=== PATIENT | male | born 1965 | race Caucasian/White ===

== ENCOUNTER 2021-01-10 15:49 | Inpatient (IN) | payer SELFPAY ==
[2021-01-10] VITALS (12 sets, daily range): BP systolic 117–139; BP diastolic 77–90; PULSE 62–101; RESP 16–24; TEMP 37.1–37.4; O2SAT 94–99; BMI 27.7
--- NOTE | 2021-01-10 17:00 | W.ED.ABDPA2 ---
Documented by User: Butch Garces MD 01/10/21 17:02 HPI - Abdominal Pain General: Chief Complaint: Abdominal Pain Stated Complaint: Pain in ABD Time Seen by Provider: 01/10/21 16:54 History of Present Illness: HPI narrative: This patient is a 55-year-old male who presents to the emergency department complaint of severe abdominal pain in the epigastrium the right upper quadrant and more diffusely. Patient has been nauseated and vomited once. Patient states he started having severe abdominal pain after mowing the yard on Saturday 2 days ago. Patient states been unable to eat ever since. Patient states that he is only had sips of water since then. Will do medical evaluation treat as needed. Patient is advised to be n.p.o. until studies and evaluation is completed. MD elicited complaint: abdominal pain Onset (ago): day(s) Pain Consistency: constant Location: Diffuse Severity: moderate Quality: aching Radiation: none Associated Symptoms: Reports nausea and vomiting; Denies chills, dysuria and fever(s) Review of Systems General: Reports: 10 or more systems reviewed and unremarkable except in HPI and below Const: Denies: fever(s), chills, body aches or fatigue Eyes: Denies: change in vision or blurry vision ENMT: Denies: throat pain, hoarseness or mouth pain Card: Denies: chest pain, palpitations, irregular heart rhythm, edema, swelling of feet/ankles or lightheadedness Resp: Denies: dyspnea, productive cough, non-productive cough, wheezing or pain on inspiration GI: Reports: abdominal pain, nausea and vomiting : Denies: flank pain, dysuria, urinary frequency, urinary urgency or urinary hesitancy Musc: Denies: neck pain, back pain, extremity pain, extremity swelling, joint pain, joint swelling, joint redness, joint warmth or limited range of motion Skin/Breast: Denies: rash, pruritus, erythema or skin tenderness Neuro: Denies: headache(s), numbness in extremities or weakness in extremities Psych: Denies: anxiety or depression Physical Exam Const: COMMON NORMALS: no acute distress, average body habitus, patient oriented x3, no limitations, healthy appearing, alert and well nourished HENMT: COMMON NORMALS: normocephalic, atraumatic, hearing grossly normal bilaterally, external ears normal, EAC's normal, TM's normal bilaterally, Normal external nose present, Normal nasal mucous membranes and turbinates present, moist oral mucous membranes, oropharynx normal, dentition normal and gingiva normal HEAD & SCALP: normocephalic and atraumatic NOSE: Normal external nose present and Normal nasal mucous membranes and turbinates present EXTERNAL EAR: Yes external ears normal EXTERNAL AUDITORY CANAL: EAC's normal TYMPANIC MEMBRANE: TM's normal bilaterally Neck/C-Spine: COMMON NORMALS: full ROM, no lymphadenopathy, supple, no meningeal signs, no JVD, Thyroid normal and No carotid bruits THYROID: Thyroid normal Chest: COMMONS NORMALS: normal inspection of the chest, normal palpation of entire chest wall, normal inspection of the breasts and normal palpation of the breasts Breast/axilla inspection: Yes normal inspection of the breasts BREAST/AXILLA PALPATION: Yes normal palpation of the breasts Resp: COMMON NORMALS: normal respiratory effort, No retractions, No use of accessory muscles, clear to auscultation bilaterally and percussion normal AUSCULTATION: clear to auscultation bilaterally PERCUSSION: percussion normal Cardio: COMMON NORMALS: no JVD, regular rate, regular rhythm, S1 normal heart sound present, S2 normal heart sound present, No gallops present (Cardio), No clicks present (Cardio), No murmurs present (Cardio), No rub (Cardio) and Peripheral pulses 2+ throughout RATE: regular rate RHYTHM: regular rhythm HEART SOUNDS: S1 normal heart sound present and S2 normal heart sound present PERIPHERAL PULSES: Peripheral pulses 2+ throughout GI: COMMON NORMALS: Normal to inspection, nondistended, normoactive bowel sounds present, No hepatosplenomegaly present, no masses and no bruits AUSCULTATION: Yes Hypoactive bowel sounds present PALPATION: Yes Firmness to palpation present (GI), Yes Tenderness to palpation present (GI) (Diffusely tender) and Yes No hepatosplenomegaly present : COMMON NORMALS: Yes no CVA tenderness BLADDER/KIDNEY EXAM: Yes no CVA tenderness Back/Pelvis: COMMON NORMALS: no CVA tenderness, thoracic and lumbar spine normal to inspection, no thoracic nor lumbar tenderness, thoraco-lumbar ROM normal and straight leg raise negative bilaterally Extremity: COMMON NORMALS: normal to inspection, full ROM, capillary refill normal, no joint enlargement, no clubbing, cyanosis or edema, no calf tenderness and no pedal edema Neuro: COMMON NORMALS: patient oriented x3 SENSORIUM/ORIENTATION: Yes alert MENINGEAL SIGNS: Yes no meningeal signs Course Vital Signs: Vital signs: Vital Signs Temperature 99.3 F 01/10/21 16:24 Pulse Rate 75 01/10/21 19:03 Respiratory Rate 20 H 01/10/21 19:03 Blood Pressure 119/81 01/10/21 19:03 Pulse Oximetry 95 01/10/21 19:03 MDM - Abdominal Pain MDM Narrative: Medical decision making narrative: This patient is a 55-year-old male who presents to the emergency department complaint of severe abdominal pain in the epigastrium the right upper quadrant and more diffusely. Patient has been nauseated and vomited once. Patient states he started having severe abdominal pain after mowing the yard on Saturday 2 days ago. Patient states been unable to eat ever since. Patient states that he is only had sips of water since then. Will do medical evaluation treat as needed. Patient is advised to be n.p.o. until studies and evaluation is completed. Lab Data: Labs: Lab Results 01/10/21 01/10/21 01/10/21 Range/Units 17:14 17:14 17:14 WBC 16.5 H (4.0-10.0) 10^3/ uL RBC 5.19 (4.1-5.3) 10^6/u L Hgb 15.4 (11.7-16.6) g/dL Hct 47.2 (42.0-52.0) % MCV 90.9 (80-94) fL MCH 29.7 (28.0-34.0) pg MCHC 32.6 (30.0-36.0) g/dL RDW 13.4 (12.1-15.1) % Plt Count 171 (130-400) 10^3/c mm MPV 10.8 H (7.4-10.4) fL Neut % (Auto) 85.4 % Lymph % (Auto) 6.6 % [place] % (Auto) 7.0 % Eos % (Auto) 0.0 % Baso % (Auto) 0.3 % Neut # (Auto) 14.08 H (1.8-7.7) 10^3/u L Lymph # (Auto) 1.1 (0.8-4.8) 10^3/u L [place] # (Auto) 1.2 H (0.2-0.9) 10^3/u L Eos # (Auto) 0.0 (0.0-0.8) 10^3/u L Baso # (Auto) 0.1 (0.0-0.1) 10^3/u L Nucleated RBC % (a uto) 0 % Nucleated RBCs # 0.0 /100WBC D-Dimer 1.12 H (0-0.59) ug/mIFE U Sodium 135 L (136-145) mmol/L Potassium 3.7 (3.5-5.1) mmol/L Chloride 96 L (98-107) mmol/L Carbon Dioxide 24 (22-29) mmol/L Anion Gap 18.7 (5-19) BUN 22 H (6-20) mg/dL Creatinine 0.9 (0.7-1.2) mg/dL GFR Calculation 87.0 L (90-130) mL/min Glucose 132 H (65-115) mg/dL Calculated Osmolal ity 285 (285-295) mOsm/k g Calcium 8.8 (8.5-10.5) mg/dL Total Bilirubin 1.5 H (0.15-1.2) mg/dL AST 27 (0-40) U/L ALT 24 (0-41) U/L Alkaline Phosphata se 101 (40-130) IU/L Total Protein 7.4 (6.6-8.7) g/dL Albumin 4.0 (3.5-5.2) g/dL Globulin 3.4 (1.3-4.6) g/dL Lipase 10 L (13-60) U/L Discharge Plan Discharge Prescriptions: No Action Pepcid 20 mg Tablet 20 mg PO TID RF: 0 Coding Level of Care Code 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 I took patient over from Dr. Garces and did receive a CT scan that showed a ruptured appendicitis. I spoke to surgeon on-call will start IV antibiotics and patient is going to go straight to the operating room. Lab Data: Labs: Lab Results 01/10/21 01/10/21 01/10/21 Range/Units 17:14 17:14 17:14 WBC 16.5 H (4.0-10.0) 10^3/ uL RBC 5.19 (4.1-5.3) 10^6/u L Hgb 15.4 (11.7-16.6) g/dL Hct 47.2 (42.0-52.0) % MCV 90.9 (80-94) fL MCH 29.7 (28.0-34.0) pg MCHC 32.6 (30.0-36.0) g/dL RDW 13.4 (12.1-15.1) % Plt Count 171 (130-400) 10^3/c mm MPV 10.8 H (7.4-10.4) fL Neut % (Auto) 85.4 % Lymph % (Auto) 6.6 % [place] % (Auto) 7.0 % Eos % (Auto) 0.0 % Baso % (Auto) 0.3 % Neut # (Auto) 14.08 H (1.8-7.7) 10^3/u L Lymph # (Auto) 1.1 (0.8-4.8) 10^3/u L [place] # (Auto) 1.2 H (0.2-0.9) 10^3/u L Eos # (Auto) 0.0 (0.0-0.8) 10^3/u L Baso # (Auto) 0.1 (0.0-0.1) 10^3/u L Nucleated RBC % (a uto) 0 % Nucleated RBCs # 0.0 /100WBC D-Dimer 1.12 H (0-0.59) ug/mIFE U Sodium 135 L (136-145) mmol/L Potassium 3.7 (3.5-5.1) mmol/L Chloride 96 L (98-107) mmol/L Carbon Dioxide 24 (22-29) mmol/L Anion Gap 18.7 (5-19) BUN 22 H (6-20) mg/dL Creatinine 0.9 (0.7-1.2) mg/dL GFR Calculation 87.0 L (90-130) mL/min Glucose 132 H (65-115) mg/dL Calculated Osmolal ity 285 (285-295) mOsm/k g Calcium 8.8 (8.5-10.5) mg/dL Total Bilirubin 1.5 H (0.15-1.2) mg/dL AST 27 (0-40) U/L ALT 24 (0-41) U/L Alkaline Phosphata se 101 (40-130) IU/L Total Protein 7.4 (6.6-8.7) g/dL Albumin 4.0 (3.5-5.2) g/dL Globulin 3.4 (1.3-4.6) g/dL Lipase 10 L (13-60) U/L Imaging Data ^: CT Abd/Pel: Attestation: I personally reviewed and interpreted this imaging study as follows: Radiologist's impression: [address] [address] [address] Scan Report Signed Patient: Filippo Browning Unit #: [id number] : 1965 Age/Sex: 55 / M ADM Date: 01/10/21 Loc: ER Room/Bed: Attending Dr: Ordering Provider/Ordering MD: Butch Garces MD Date of Service: 01/10/21 Procedure(s): CT abdomen pelvis w con* [id number] Accession Number(s): [id number] Report Number: [id number] PROCEDURE INFORMATION: Exam: CT Abdomen And Pelvis With Contrast Exam date and time: 01/10/2021 5:00 PM Age: 55 years old Clinical indication: Abdominal pain; Localized; Lower; Additional info: Abd pain TECHNIQUE: Imaging protocol: Computed tomography of the abdomen and pelvis with contrast. Radiation optimization: All CT scans at this facility use at least one of these dose optimization techniques: automated exposure control; mA and/or kV adjustment per patient size (includes targeted exams where dose is matched to clinical indication); or iterative reconstruction. Contrast material: OMNI 300; Contrast volume: 95 ml; Contrast route: INTRAVENOUS (IV); COMPARISON: No relevant prior studies available. RADIATION DOSE METRICS: Total DLP (mGy-cm): 1766.16 FINDINGS: Liver: Normal. No mass. Gallbladder and bile ducts: Normal. No calcified stones. No ductal dilation. Pancreas: Normal. No ductal dilation. Spleen: Calcified granulomas in the spleen. Adrenal glands: Normal. No mass. Kidneys and ureters: Mild perinephric stranding is most likely chronic. The kidneys are otherwise normal. Stomach and bowel: Air-fluid levels in the proximal and transverse colon. Multiple loops of mildly dilated inflamed distal small bowel measuring up to 3.3 cm in diameter. Appendix: 6 mm calcified appendicolith in the mid appendix. The mid and distal appendix is dilated up to 13 mm. There is rupture of the appendiceal tip with scattered gas in the mesentery of the right lower quadrant and lower abdomen. Periappendiceal fat stranding. Intraperitoneal space: Pelvic ascites. Scattered peritoneal gas with small air-fluid levels in the lower abdomen. Vasculature: Unremarkable. No abdominal aortic aneurysm. Lymph nodes: Unremarkable. No enlarged lymph nodes. Urinary bladder: Unremarkable as visualized. Reproductive: Unremarkable as visualized. Bones/joints: Unremarkable. No acute fracture. Soft tissues: Fat containing bilateral inguinal hernias. Small fat containing umbilical hernia. CT/CT abdomen pelvis w con* [id number] IMPRESSION: 1. Acute ruptured appendicitis with pneumoperitoneum. 2. Small air-fluid levels in the lower abdomen could represent early abscesses. 3. Pelvic ascites. Early abscess formation is not entirely excluded. 4. Inflamed mildly dilated loops of distal small bowel is most likely reactive enteritis or ileus. 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
[2021-01-10] MEDS: ondansetron 2 mg/ML SDV 2 mL 4 MG IVP (17:22)
[2021-01-10] MEDS: sodium chloride 0.9% 1,000 ML 999 ML IV (17:22)
[2021-01-10] MEDS: morphine 4 mg/mL SDV 1 mL IVP (17:23)
[2021-01-10 17:28] LABS: Basophils # 0.1 10^3/uL (0.0-0.1); Basophils % 0.3 %; Hematocrit 47.2 % (42.0-52.0); Hemoglobin 15.4 g/dL (11.7-16.6); Lymphocytes # 1.1 10^3/uL (0.8-4.8); Lymphocytes % 6.6 %; Mean Corpuscular HGB Conc 32.6 g/dL (30.0-36.0); Mean Corpuscular Hemoglobin 29.7 pg (28.0-34.0); Mean Corpuscular Volume 90.9 fL (80-94); Mean Platelet Volume 10.8 fL (7.4-10.4); Monocytes # 1.2 10^3/uL (0.2-0.9); Neutrophils # 14.08 10^3/uL (1.8-7.7); Neutrophils % 85.4 %; Nucleated Red Blood Cells % 0 %; Platelet Count 171 10^3/cmm (130-400); Red Blood Count 5.19 10^6/uL (4.1-5.3); Red Cell Distribution Width 13.4 % (12.1-15.1); White Blood Count 16.5 10^3/uL (4.0-10.0)
[2021-01-10 17:44] LABS: D Dimer 1.12 ug/mIFEU (0-0.59)
[2021-01-10 17:45] LABS: Alanine Aminotransferase 24 U/L (0-41); Alkaline Phosphatase 101 IU/L (40-130); Anion Gap 18.7 (5-19); Aspartate Amino Transferase 27 U/L (0-40); Blood Urea Nitrogen 22 mg/dL (6-20); Calcium 8.8 mg/dL (8.5-10.5); Carbon Dioxide 24 mmol/L (22-29); Chloride 96 mmol/L (98-107); Globulin 3.4 g/dL (1.3-4.6); Glucose 132 mg/dL (65-115); Lipase 10 U/L (13-60); Osmolality Calculated 285 mOsm/kg (285-295); Potassium 3.7 mmol/L (3.5-5.1); Sodium 135 mmol/L (136-145); Total Bilirubin 1.5 mg/dL (0.15-1.2); Total Protein 7.4 g/dL (6.6-8.7)
[2021-01-10] MEDS: iohexol 300 mg/mL 100 mL Btl IV (18:11)
[2021-01-10] MEDS: levofloxacin-dextrose 5 % 750 MG/150 ML PREMIX 100 MG IV (19:13)
[2021-01-10 19:40] LABS: Glucose Urine UA Norm (Normal); Ketones Urine Negative (Negative); Protein Urine Trace (Negative); Urine Appearance Clear (CLEAR); Urine Color Yellow (Yellow); pH Urine 5 (5-7)
[2021-01-10 19:41] LABS: Add Urine Microscopic? YES; Bilirubin Urine 1+ (Negative); Blood Urine 2+ (Negative); Leukocyte Esterase Urine Negative (Negative); Nitrate Urine Negative (Negative); Urobilinogen Urine 1 mg/dL (Negative)
--- NOTE | 2021-01-10 19:44 | PM.HP ---
Providers/Chief Complaint Admitting Physician: General Surgery Umberto Cifuentes MD Primary Care Provider: Robert Moncada MD Chief Complaint: Pain in ABD History of Present Illness Filippo Browning is a 55 year old male who began having some generalized abdominal pain a little over 2 days ago. He says yesterday he ran a fever up to over 101 degrees and had some chills. He has had some pain move around his abdomen but it has become more constant in the lower abdomen near the midline. He has not had any nausea or vomiting but has been anorexic. He has not had any food in 48 hours, but has been trying to drink some fluids. He came to the emergency room today and a CAT scan showed evidence of perforated appendicitis. Review of Systems General: Reports: 10 or more systems reviewed and unremarkable except in HPI and below Const: Reports: fever(s) and chills GI: Reports: abdominal pain and change in bowel habits (No bowel movement for 5 days. Very little flatus.); Denies: nausea Medications/Allergies Home Medications Medication Instructions Recorded Confirmed Last Taken Type famotidine [Pepcid] 20 mg PO TID 01/10/21 01/10/21 01/10/21 History Allergies Allergy/AdvReac Type Severity Reaction Status Date / Time Penicillins Allergy Unknown Unknown Verified 01/10/21 17:21 PFSH Acute PFSH: Medical History (Updated 01/10/21 @ 19:46 by Umberto Cifuentes MD) GERD (gastroesophageal reflux disease) Surgical History (Updated 01/10/21 @ 19:46 by Umberto Cifuentes MD) History of right knee surgery Foreign body (nail) removed from right knee area Social History (Updated 01/10/21 @ 19:47 by Umberto Cifuentes MD) Smoking and tobacco status: current every day smoker cigarettes Packs smoked per day: 1 Years cigarettes smoked: 30 Vitals/I&O/Wt Last Vital Signs Temp 99.3 F 01/10/21 16:24 Pulse 75 01/10/21 19:03 Resp 20 H 01/10/21 19:03 BP 119/81 01/10/21 19:03 Pulse Ox 95 01/10/21 19:03 01/10/21 01/10/21 01/10/21 06:59 14:59 22:59 Intake Total 1000 / 1000 Balance 1000 / 1000 Weight last 48 hrs Weight 210 lb Physical Exam Narrative: EXAM NARRATIVE: The patient was encountered in his room in the emergency department. He does not appear to be in any distress but acts like he just does not feel very well. The pupils are equal. No carotid bruits are heard. The lungs are clear anteriorly. The heart is regular. The abdomen reveals hypoactive bowel sounds. He has scattered but rather diffuse tenderness across the lower abdomen with the point of maximum tenderness being near the midline or perhaps just slightly to the right side. No obvious masses are palpated. The extremities reveal no edema. Neurologically the patient appears to be grossly intact. Data : 01/10/21 17:14 01/10/21 17:14 CT Abd/Pel: Radiologist's impression: CT abdomen pelvis 01/10/2021 IMPRESSION: 1. Acute ruptured appendicitis with pneumoperitoneum. 2. Small air-fluid levels in the lower abdomen could represent early abscesses. 3. Pelvic ascites. Early abscess formation is not entirely excluded. 4. Inflamed mildly dilated loops of distal small bowel is most likely reactive enteritis or ileus. A&P Assessment and plan (1) Perforated appendicitis: CT reviewed. I agree with the assessment. The patient's appendix seems to deviate somewhat medially towards the pelvis, explaining his pain pattern. We discussed appendicitis and perforations in some detail. We discussed both medical and surgical methods of management. Surgical risks including bleeding, infection, internal organ injury, etc. were all discussed. I made him aware there may be a chance that we can get things adequately washed out laparoscopically if we approach this surgically, but an open procedure may be necessary. I told him I would at least be willing to start laparoscopically to see if we can achieve satisfactory results that way. He seems to understand and would like to proceed with an appendectomy tonight. The patient has not had anything to eat in 2 days, but has had some fluid to drink. We will make arrangements for a laparoscopic or possibly open appendectomy this evening Status: Acute Attestations Medical Necessity Statement*: Based on my medical assessment, presenting symptoms, medical accuity and consideration of surgical therapy, I expect this patient will require treatment in the hospital for a period spanning at least 2 midnights. Coding Level of Care Code Acute [employer] Agent for [facility] Diagnoses Perforated appendicitis K35.32
[2021-01-10] MEDS: HYDROmorphone 1 mg/mL INJ 1 mL IVP (20:00)
[2021-01-10] MEDS: metroNIDAZOLE IV 500 MG/100 ML PREMIX 100 MG IV (20:26)
[2021-01-10] MEDS: sodium chloride 0.9% SDV 10 mL 20 ML (21:10)
--- NOTE | 2021-01-10 21:19 | P.ANESASSM_ITS ---
Pre-Anesthetic Assessment Pre-Anesthetic Assessment: Height/Weight: Height 1.85 m Weight 95.254 kg Temp Pulse Resp BP Pulse Ox 99.3 F 101 H 19 H 139/90 96 01/10/21 16:24 01/10/21 20:00 01/10/21 20:00 01/10/21 20:00 01/10/21 20:00 Proposed Procedure: Operation Date: 01/10/21 19:45 Proposed Procedures p Laparoscopic Appendectomy(Not Applicable) - Umberto Cifuentes MD Was Beta Lloyd taken within 24 hours: N/A Was Clonidine taken within 24 hours: N/A Social: Social History: Tobacco and No alcohol Exam: Pre-Anes Outpt Exam: alert, oriented x 3 and regular rate & rhythm Airway: Submandibular: WNL Cervical ROM: WNL MP: 2 Dentition: Chipped Additional comments: Poor dentition Pulmonary: Pulmonary: COPD GI: GI: GERD Comments: Acute abdomen Anesthetic Plan: ASA status: 3E Anesthesia: General (RSI) Risk of > 500 ml blood loss (7ml/kg in children): No Meds/Allergies Current Medications: Current Medications Generic Name Dose Route Start Last Admin Trade Name Freq PRN Reason Stop Dose Admin Metronidazole 500 mg in 100 mls @ 100 mls/hr 01/10/21 20:45 01/10/21 20:31 Flagyl Iv IV 01/10/21 21:44 Infused [employer] ONE Infusion PFSH Anesthesia 2 PFSH: Medical History (Updated 01/10/21 @ 19:46 by Umberto Cifuentes MD) GERD (gastroesophageal reflux disease) Surgical History (Updated 01/10/21 @ 19:46 by Umberto Cifuentes MD) History of right knee surgery Foreign body (nail) removed from right knee area Social History (Updated 01/10/21 @ 19:47 by Umberto Cifuentes MD) Smoking and tobacco status: current every day smoker cigarettes Packs smoked per day: 1 Years cigarettes smoked: 30 Data Anesthesia CBC & Chem 7: 01/10/21 17:14 01/10/21 17:14 Other Labs: Laboratory Results - last 48 hr 01/10/21 01/10/21 01/10/21 17:14 17:14 17:14 WBC 16.5 H RBC 5.19 Hgb 15.4 Hct 47.2 MCV 90.9 MCH 29.7 MCHC 32.6 RDW 13.4 Plt Count 171 MPV 10.8 H Neut % (Auto) 85.4 Lymph % (Auto) 6.6 [place] % (Auto) 7.0 Eos % (Auto) 0.0 Baso % (Auto) 0.3 Neut # (Auto) 14.08 H Lymph # (Auto) 1.1 [place] # (Auto) 1.2 H Eos # (Auto) 0.0 Baso # (Auto) 0.1 Nucleated RBC % (auto) 0 Nucleated RBCs # 0.0 D-Dimer 1.12 H Sodium 135 L Potassium 3.7 Chloride 96 L Carbon Dioxide 24 Anion Gap 18.7 BUN 22 H Creatinine 0.9 GFR Calculation 87.0 L Glucose 132 H Calculated Osmolality 285 Calcium 8.8 Total Bilirubin 1.5 H AST 27 ALT 24 Alkaline Phosphatase 101 Total Protein 7.4 Albumin 4.0 Globulin 3.4 Lipase 10 L Urine Color Urine Appearance Urine pH Ur Specific [place] Urine Protein Urine Glucose (UA) Urine Ketones Urine Blood Urine Nitrate Urine Bilirubin Urine Urobilinogen Ur Leukocyte Esterase Urine RBC Urine WBC Ur Squamous Epith Cells Amorphous Sediment Urine Bacteria 01/10/21 18:16 WBC RBC Hgb Hct MCV MCH MCHC RDW Plt Count MPV Neut % (Auto) Lymph % (Auto) [place] % (Auto) Eos % (Auto) Baso % (Auto) Neut # (Auto) Lymph # (Auto) [place] # (Auto) Eos # (Auto) Baso # (Auto) Nucleated RBC % (auto) Nucleated RBCs # D-Dimer Sodium Potassium Chloride Carbon Dioxide Anion Gap BUN Creatinine GFR Calculation Glucose Calculated Osmolality Calcium Total Bilirubin AST ALT Alkaline Phosphatase Total Protein Albumin Globulin Lipase Urine Color Yellow Urine Appearance Clear Urine pH 5 Ur Specific [place] 1.010 Urine Protein Trace Urine Glucose (UA) Norm Urine Ketones Negative Urine Blood 2+ H Urine Nitrate Negative Urine Bilirubin 1+ H Urine Urobilinogen 1 H Ur Leukocyte Esterase Negative Urine RBC None Urine WBC None Ur Squamous Epith Cells None Amorphous Sediment Not Reportable Urine Bacteria None Cardiac Studies: No Data to Display
--- NOTE | 2021-01-10 21:23 | P.OP_ITS ---
Operative Report Date of procedure: January 10, 2021 Pre-op Diagnosis: Perforated appendicitis. Post-op diagnosis: same Procedure Done: Laparoscopy followed by conversion to an open procedure with appendectomy. Specimens removed/disposition: Appendix/fecalith. Surgeon: Umberto Cifuentes Anesthesia: General Estimated blood loss (mL): 20 Complications: None. Condition: stable Disposition: PACU Procedure: The patient was brought to the Operating Room and was placed in a supine position on the operating room table. General endotracheal anesthesia was induced. The abdomen was prepped and draped in a sterile fashion. A small vertical incision was carried out in the superior aspect of the umbilicus. Blunt dissection was carried out down to the fascia, where a small fat-containing umbilical hernia was found. The fat was excised and the small defect was elongated superiorly. The underlying peritoneum was opened bluntly and the Kerrie port was placed directly into the peritoneal cavity through the enlarged hernia defect and was held in place with the inflatable balloon. The peritoneal cavity was insufflated with carbon dioxide. The laparoscope was used to inspect the peritoneal cavity. The patient had some purulent material and exudate in the pelvis and in the right lower quadrant. Some of this was eventually obtained with suction and was sent for Gram stain and culture. Two 5-millimeter ports were placed in the left lower quadrant under direct vision. The patient was tilted in a Trendelenburg position and slightly to the left side. Blunt dissection with graspers and a laparoscopic [place] was then carried out in the right lower quadrant. The patient had a phlegmon that was forming. His appendix was eventually found stuck fairly intimately posteriorly in the pelvis and there was quite a bit of thick purulent material in the pelvis from the appendiceal rupture. Irrigation was carried out but eventually it was found that the appendix was simply too adhesed and I was not comfortable that we could get the patient irrigated out enough laparoscopically and so the decision was made to convert to an open procedure. A midline incision was carried out below the level of the umbilicus with a scalpel. Cautery was used to divide the midline tissue and the peritoneal cavity was entered. Palpation revealed the appendix posteriorly in the pelvis in the right lower quadrant. This was eventually mobilized bluntly into the field. The appendix was necrotic about two [address] way to the tip and had almost circumferential perforation. The mesoappendix was divided using cautery and the appendiceal artery was cauterized. The base of the appendix was relatively healthy and as the surgical crew had already pulled a laparoscopic stapler, this was actually used to divide the base of the appendix and the appendix was removed. A firm fecalith was found floating freely in the pelvis and was sent with the specimen. Extensive irrigation was then carried out in the pelvis and even the upper quadrants as much as could be achieved through the lower midline incision. This was done until the irrigant returned clear. The staple line on the cecum was once again identified and appeared to be in good condition. The fluid had been free enough in the pelvis that I did not think a drain was probably going to make much difference at this point and so no drain was placed. The midline fascia was closed using a running looped suture of 0 PDS. The subcutaneous tissue was irrigated and the skin was eventually approximated using skin maria elena. The two 5 mm laparoscopic incisions in the left lower quadrant were closed at the skin level using skin maria elena. The small fascial defect at the umbilicus was closed using some interrupted sutures of 0 Vicryl and the skin was approximated using some inverted interrupted sutures of 4-0 Vicryl. Benzoin and Steri-Strips were placed over the umbilical incision and sterile dressings were applied across the other abdominal incisions. A Sharp catheter was inserted before the patient awoke in the operating room. He was subsequently taken to the Recovery Room in stable condition postoperatively.
--- NOTE | 2021-01-10 21:41 | ANE.PACU2 ---
Inpatient post-anesthesia follow up: Airway intact: Yes Vital signs: Temperature 99.3 F Pulse Rate [Monito r] 93 Pulse Rate 101 Respiratory Rate 19 Blood Pressure [Le ft Arm] 127/87 Blood Pressure 139/90 Pulse Oximetry 96 Oxygen Delivery Me thod Room Air Oxygen Flow Rate Fraction of Inspir ed Oxygen Hydration adequate: Yes Nausea and vomiting: No Pain level: 2 Mental status: Baseline
[2021-01-10] MEDS: famotidine 20 mg/2 mL INJ IVP (23:33)
[2021-01-10] MEDS: D5-NS 0.45% + KCL 20 mEq 20 MEQ/1,000 ML BAG 125 MEQ IV (23:33)
[2021-01-10] MEDS: heparin 5,000 unit/mL INJ 1 mL 5000 UNIT SUBCUT (23:33)
[2021-01-10] MEDS: piperacillin-tazobactam 3.375 GM in sodium chloride 0.9% (plus) 100 ML IV (23:34)
[2021-01-11] VITALS (14 sets, daily range): BP systolic 100–121; BP diastolic 63–70; PULSE 70–86; RESP 16–18; TEMP 36.2–37.1; O2SAT 94–98
[2021-01-11] MEDS: levalbuterol 0.63 mg/3 mL Neb INHALATION ×5 (03:32→20:55)
[2021-01-11] MEDS: ketorolac 30 mg/mL INJ IVP ×3 (06:35→22:10)
[2021-01-11] MEDS: piperacillin-tazobactam 3.375 GM in sodium chloride 0.9% (plus) 100 ML IV ×2 (06:35→15:10)
[2021-01-11] MEDS: D5-NS 0.45% + KCL 20 mEq 20 MEQ/1,000 ML BAG 125 MEQ IV ×2 (06:35→15:09)
[2021-01-11 06:40] LABS: Basophils % 0.2 %; Hematocrit 39.8 % (42.0-52.0); Lymphocytes # 0.3 10^3/uL (0.8-4.8); Lymphocytes % 2.5 %; Mean Corpuscular HGB Conc 32.7 g/dL (30.0-36.0); Mean Corpuscular Hemoglobin 30.2 pg (28.0-34.0); Mean Corpuscular Volume 92.6 fL (80-94); Mean Platelet Volume 11.7 fL (7.4-10.4); Monocytes # 0.8 10^3/uL (0.2-0.9); Monocytes % 6.2 %; Neutrophils # 11.06 10^3/uL (1.8-7.7); Neutrophils % 90.6 %; Nucleated Red Blood Cells % 0 %; Platelet Count 144 10^3/cmm (130-400); Red Cell Distribution Width 13.7 % (12.1-15.1); White Blood Count 12.2 10^3/uL (4.0-10.0)
[2021-01-11 06:59] LABS: Anion Gap 12.2 (5-19); Blood Urea Nitrogen 18 mg/dL (6-20); Calcium 7.6 mg/dL (8.5-10.5); Carbon Dioxide 23 mmol/L (22-29); Chloride 102 mmol/L (98-107); Glomerular Filtration Rate 116.2 mL/min (90-130); Glucose 187 mg/dL (65-115); Osmolality Calculated 283 mOsm/kg (285-295); Potassium 4.2 mmol/L (3.5-5.1); Sodium 133 mmol/L (136-145)
--- NOTE | 2021-01-11 09:22 | PM.PN ---
Subjective Subjective: Interval history: The patient says he is sore but actually feels a little bit better than he did preoperatively. Vitals/I&O/Wt Last Vital Signs Temp 97.1 F L 01/11/21 08:00 Pulse 72 01/11/21 08:07 Resp 18 01/11/21 08:07 BP 113/69 01/11/21 08:00 Pulse Ox 96 01/11/21 08:07 01/10/21 01/11/21 01/11/21 22:59 06:59 14:59 Intake Total 1310 / 3289.167 1979.167 / 3289.167 720 / 720 Output Total 304 / 1904 1600 / 1904 Balance 1006 / 1385.167 379.167 / 1385.167 720 / 720 Weight last 48 hrs Weight 210 lb Physical Exam Narrative: EXAM NARRATIVE: The patient is afebrile. Vital signs appear stable. Urine output is good. Bowel sounds are rare. The midline dressing is intact. Urinary Catheter Management^: Sharp Latex: Cath Placed During This Visit: yes Reason for Continuing Indwelling Catheter: Required Immobilization for Trauma or Surgery or Anesthesia Urinary Catheter Date of Insertion: 01/10/21 Urinary Catheter Time of Insertion: 21:22 Data : 01/11/21 05:34 01/11/21 05:34 A&P Assessment and plan (1) Perforated appendicitis: Status post laparoscopy/laparotomy for perforated appendicitis on 01/10/2021. The patient's white blood cell count is defervescing. He remains on intravenous Zosyn. Peritoneal fluid was sent for Gram stain and culture last night but I have yet to see any results on this. Increase activity, but otherwise continue current management. Status: Acute Attestations Medical Necessity Statement*: Patient requires continued inpatient care including intravenous antibiotics following surgery for perforated appendicitis. Coding Level of Care Code Acute Inclusion Special Education Teacher for Mary Barber Diagnoses Perforated appendicitis K35.32
--- NOTE | 2021-01-11 09:42 | PC.CHAP ---
Pastoral Care Encounter/Spiritual Assessment Type of Contact [] Declined senior svp visit [] Patient/Family/Request visit [] Outpatient visit [] Follow-up visit [] Physician referral [] Code/Alert [x] Routine visit [] Staff referral [] Actively dying [] Patient sleeping [] Family support [] [] Out of room [] Palliative care [] [] Receiving care in room [] Pre-surgical visit [] Trauma [] Long length of stay [] ICU visit [] Other: Relational/Emotional Strength [x] Patient feels connected with others/family/visitors/staff [] Distress [] Loneliness/isolation [] Abandonment Spirituality of Patient x Person of Sera [] Attends Zoroastrian of their Sera [] Believes in Prayer [] Reads Bible or Temple materials [] There are Spiritual issues to be addressed Civil Engineering Project Manager Interventions [x] Prayer [x] Active listening [x] Non-anxious presence [] Spiritual/emotional support [] Crisis/trauma care [] Spiritual counseling [] Bereavement support [] Provided bereavement packet [] Provided Bible/devotional materials [] Provided toy/stuffed animal, coloring book to patient or family member [] Provided Communion [] Anointing/[place] [] Salvation [x] Completed spiritual assessment [] Other: Impact on Illness or Injury [] Angry [] Fearful [] Anxious [] Often cries [] Exhaustion [] Unable to work [] Unable to attend yazidi [] Unable to walk/stand [] Unable to read [] Unable to drive [] Unable to eat/drink [] Unable to sleep [] Unable to be with family [] Patient intubated [] Other: Summary Time spent with patient 15 min
[2021-01-11] MEDS: heparin 5,000 unit/mL INJ 1 mL 5000 UNIT SUBCUT ×2 (09:52→21:05)
[2021-01-11] MEDS: famotidine 20 mg/2 mL INJ IVP ×2 (09:52→18:37)
--- NOTE | 2021-01-11 19:25 | PC.NURSE ---
Ambulation Pt has walked 2 times around both nurse stations 3 times today besides walking to [facility].
[2021-01-12] VITALS (12 sets, daily range): BP systolic 108–150; BP diastolic 65–92; PULSE 67–87; RESP 16–18; TEMP 36.4–36.8; O2SAT 96–98
[2021-01-12] MEDS: piperacillin-tazobactam 3.375 GM in sodium chloride 0.9% (plus) 100 ML IV ×3 (01:57→18:31)
[2021-01-12 05:33] LABS: Basophils % 0.1 %; Eosinophils # 0.1 10^3/uL (0.0-0.8); Hematocrit 35.5 % (42.0-52.0); Hemoglobin 11.6 g/dL (11.7-16.6); Lymphocytes # 1.1 10^3/uL (0.8-4.8); Lymphocytes % 12.2 %; Mean Corpuscular HGB Conc 32.7 g/dL (30.0-36.0); Mean Corpuscular Hemoglobin 29.7 pg (28.0-34.0); Mean Corpuscular Volume 90.8 fL (80-94); Mean Platelet Volume 11.1 fL (7.4-10.4); Monocytes # 0.9 10^3/uL (0.2-0.9); Monocytes % 9.7 %; Neutrophils # 7.14 10^3/uL (1.8-7.7); Neutrophils % 76.5 %; Nucleated Red Blood Cells % 0 %; Platelet Count 162 10^3/cmm (130-400); Red Blood Count 3.91 10^6/uL (4.1-5.3); White Blood Count 9.3 10^3/uL (4.0-10.0)
[2021-01-12] MEDS: D5-NS 0.45% + KCL 20 mEq 20 MEQ/1,000 ML BAG 125 MEQ IV (05:50)
[2021-01-12 05:54] LABS: Anion Gap 10.7 (5-19); Blood Urea Nitrogen 14 mg/dL (6-20); Calcium 7.7 mg/dL (8.5-10.5); Carbon Dioxide 24 mmol/L (22-29); Chloride 106 mmol/L (98-107); Glucose 134 mg/dL (65-115); Osmolality Calculated 286 mOsm/kg (285-295); Potassium 3.7 mmol/L (3.5-5.1); Sodium 137 mmol/L (136-145)
--- NOTE | 2021-01-12 06:37 | P.PN_ITS ---
Subjective Subjective: Interval history: The patient started passing flatus overnight. He is hungry. He says that his abdomen remains sore. Vitals/I&O/Wt Last Vital Signs Temp 98.3 F 01/12/21 04:10 Pulse 73 01/12/21 04:10 Resp 16 01/12/21 04:10 BP 108/65 01/12/21 04:10 Pulse Ox 96 01/12/21 04:10 01/11/21 01/11/21 01/12/21 14:59 22:59 06:59 Intake Total 2540 / 5060 1060 / 5060 1460 / 5060 Output Total 500 / 2475 275 / 2475 1700 / 2475 Balance 2040 / 2585 785 / 2585 -240 / 2585 Weight last 48 hrs Weight 210 lb Physical Exam Narrative: EXAM NARRATIVE: The patient is afebrile. Bowel sounds remain hypoactive. The dressing was removed and the incisions look good. Urinary Catheter Management^: Sharp Latex: Cath Placed During This Visit: yes, but has since been removed by the nurse Reason for Continuing Indwelling Catheter: Decision to DC Catheter Urinary Catheter Date of Insertion: 01/10/21 Urinary Catheter Time of Insertion: 21:22 Date Urinary Catheter Removed: 01/11/21 Time Urinary Catheter Discontinued: 10:00 Data : 01/12/21 04:57 01/12/21 04:57 Micro: Microbiology 01/10/21 21:00 Gram Stain - Final Peritoneal Fluid A&P Assessment and plan (1) Perforated appendicitis: Status post laparoscopy/laparotomy for perforated appendicitis on 01/10/2021. White blood cell count has normalized. Gram stain on the peritoneal fluid did not show any obvious organisms; I took cultures upon entering the abdomen and I am starting to wonder if this was more inflammatory peel as opposed to the more obvious abscess in the pelvis. Continue broad-spectrum antibiotics. Continue ambulation. Regular diet. Status: Acute Attestations Medical Necessity Statement*: Patient requires continued inpatient care including intravenous antibiotics for perforated appendicitis. Coding Level of Care Code Acute Bilingual Case Manager for Mary Barber Diagnoses Perforated appendicitis K35.32
[2021-01-12] MEDS: levalbuterol 0.63 mg/3 mL Neb INHALATION ×4 (08:45→21:19)
[2021-01-12] MEDS: famotidine 20 mg Tablet PO ×2 (10:37→14:27)
[2021-01-12] MEDS: HYDROcodone-acetaminophen 5-325 mg Tablet PO ×3 (10:37→18:45)
[2021-01-12] MEDS: heparin 5,000 unit/mL INJ 1 mL 5000 UNIT SUBCUT ×2 (10:38→21:26)
--- NOTE | 2021-01-12 18:30 | PC.RESP ---
Smoking Cessation information sent to patient.
[2021-01-12] MEDS: D5-NS 0.45% + KCL 20 mEq 20 MEQ/1,000 ML BAG 75 MEQ IV (20:08)
[2021-01-13] VITALS (8 sets, daily range): BP systolic 120–154; BP diastolic 68–94; PULSE 16–79; RESP 16–70; TEMP 36.4–37; O2SAT 95–98
[2021-01-13] MEDS: HYDROcodone-acetaminophen 5-325 mg Tablet PO ×3 (01:36→17:36)
[2021-01-13] MEDS: piperacillin-tazobactam 3.375 GM in sodium chloride 0.9% (plus) 100 ML IV ×3 (01:37→17:17)
[2021-01-13 03:31] LABS: Basophils % 0.5 %; Eosinophils # 0.3 10^3/uL (0.0-0.8); Eosinophils % 4.3 %; Hematocrit 34.3 % (42.0-52.0); Hemoglobin 11.1 g/dL (11.7-16.6); Lymphocytes # 1.3 10^3/uL (0.8-4.8); Lymphocytes % 18.2 %; Mean Corpuscular HGB Conc 32.4 g/dL (30.0-36.0); Mean Corpuscular Hemoglobin 29.8 pg (28.0-34.0); Mean Corpuscular Volume 92.2 fL (80-94); Monocytes # 0.8 10^3/uL (0.2-0.9); Monocytes % 11.1 %; Neutrophils # 4.74 10^3/uL (1.8-7.7); Neutrophils % 65.1 %; Nucleated Red Blood Cells % 0 %; Platelet Count 181 10^3/cmm (130-400); Red Blood Count 3.72 10^6/uL (4.1-5.3); Red Cell Distribution Width 14.4 % (12.1-15.1); White Blood Count 7.3 10^3/uL (4.0-10.0)
[2021-01-13 03:54] LABS: Blood Urea Nitrogen 13 mg/dL (6-20); Calcium 7.9 mg/dL (8.5-10.5); Carbon Dioxide 22 mmol/L (22-29); Chloride 104 mmol/L (98-107); Glomerular Filtration Rate 116.2 mL/min (90-130); Glucose 107 mg/dL (65-115); Osmolality Calculated 281 mOsm/kg (285-295); Sodium 135 mmol/L (136-145)
[2021-01-13 03:58] LABS: Anion Gap 12.7 (5-19); Potassium 3.7 mmol/L (3.5-5.1)
--- NOTE | 2021-01-13 08:17 | P.PN_ITS ---
Subjective Subjective: Interval history: The patient continues to pass flatus and is tolerating solid food, but remains fairly uncomfortable at times. He has not had any pain medication this morning. Vitals/I&O/Wt Last Vital Signs Temp 98.4 F 01/13/21 07:39 Pulse 78 01/13/21 07:39 Resp 18 01/13/21 07:39 BP 148/87 01/13/21 07:39 Pulse Ox 97 01/13/21 07:39 01/12/21 01/13/21 01/13/21 22:59 06:59 14:59 Intake Total 1334 Balance 1334 Physical Exam Narrative: EXAM NARRATIVE: Bowel sounds are present. The incisions look good. The patient is afebrile. Urinary Catheter Management^: Sharp Latex: Cath Placed During This Visit: yes, but has since been removed by the nurse Reason for Continuing Indwelling Catheter: Decision to DC Catheter Urinary Catheter Date of Insertion: 01/10/21 Urinary Catheter Time of Insertion: 21:22 Date Urinary Catheter Removed: 01/11/21 Time Urinary Catheter Discontinued: 10:00 Data : 01/13/21 02:27 01/13/21 02:27 Micro: Microbiology 01/10/21 21:00 Anaerobic Culture - Preliminary Peritoneal Fluid 01/10/21 21:00 Gram Stain - Final Peritoneal Fluid Body Fluid Culture - Preliminary Gram Negative Rods A&P Assessment and plan (1) Perforated appendicitis: Status post laparoscopy/laparotomy for perforated appendicitis on 01/10/2021. White blood cell count has normalized and the patient is afebrile. He is growing some gram-negative rods from his peritoneal fluid. Awaiting identification and sensitivities. Continue current management. Status: Acute Attestations Medical Necessity Statement*: Patient requires continued inpatient care for perforated appendicitis. Coding Level of Care Code Acute Cork Pressing Machine Operator for Mary Barber Diagnoses Perforated appendicitis K35.32
[2021-01-13] MEDS: D5-NS 0.45% + KCL 20 mEq 20 MEQ/1,000 ML BAG 75 MEQ IV ×2 (08:48→21:43)
[2021-01-13] MEDS: famotidine 20 mg Tablet PO ×3 (08:49→20:25)
[2021-01-13] MEDS: heparin 5,000 unit/mL INJ 1 mL 5000 UNIT SUBCUT ×2 (10:31→21:45)
--- NOTE | 2021-01-13 12:00 | PC.CHAP ---
Pastoral Care Encounter/Spiritual Assessment Type of Contact [] Declined thread inspector visit [] Patient/Family/Request visit [] Outpatient visit [xx] Follow-up visit [] Physician referral [] Code/Alert [] Routine visit [] Staff referral [] Actively dying [xx] Patient sleeping [] Family support [] [] Out of room [] Palliative care [] [] Receiving care in room [] Pre-surgical visit [] Trauma [xx] Long length of stay [] ICU visit [] Other: Relational/Emotional Strength [] Patient feels connected with others/family/visitors/staff [] Distress [] Loneliness/isolation [] Abandonment Spirituality of Patient [] Person of Sera [] Attends Rastafari of their Sera [] Believes in Prayer [] Reads Bible or Jew materials [] There are Spiritual issues to be addressed Director Software Development Interventions [] Prayer [] Active listening [] Non-anxious presence [] Spiritual/emotional support [] Crisis/trauma care [] Spiritual counseling [] Bereavement support [] Provided bereavement packet [] Provided Bible/devotional materials [] Provided toy/stuffed animal, coloring book to patient or family member [] Provided Communion [] Anointing/[place] [] Salvation [] Completed spiritual assessment [] Other: Impact on Illness or Injury [] Angry [] Fearful [] Anxious [] Often cries [] Exhaustion [] Unable to work [] Unable to attend buddhism [] Unable to walk/stand [] Unable to read [] Unable to drive [] Unable to eat/drink [] Unable to sleep [] Unable to be with family [] Patient intubated [] Other: Summary Follow up needed Time spent with patient 2 minutes
[2021-01-13] MEDS: ketorolac 30 mg/mL INJ IVP ×2 (12:54→19:27)
[2021-01-13] MEDS: levalbuterol 0.63 mg/3 mL Neb INHALATION (19:33)
[2021-01-14] MEDS: piperacillin-tazobactam 3.375 GM in sodium chloride 0.9% (plus) 100 ML IV (00:22)
[2021-01-14 04:35] VITALS: BP 127/71; PULSE 71; RESP 16; TEMP 37.4; O2SAT 95
--- NOTE | 2021-01-14 06:09 | P.DS_ITS ---
Discharge Providers Date of Admission: 01/10/21 22:12 Date of Discharge: January 14, 2021 Attending Provider at Admission: Umberto Cifeuntes MD Attending Provider at Discharge: Umberto Cifuentes MD Primary Care Provider: Robert Moncada MD Diagnoses at Discharge Discharge Diagnosis (1) Perforated appendicitis: Status: Acute Reason for Visit Reason for Visit: Pain in ABD Hospital Course Hospital Course This is a 55-year-old white male who developed abdominal pain prior to presenting to the emergency department. Imaging showed changes consistent with perforated appendicitis. The patient was taken to the operating room and laparoscopy was carried out. When clear evidence of perforation and phlegmon were seen, the procedure was converted to a laparotomy. An appendectomy was performed and the peritoneal cavity was extensively irrigated. Postoperatively the patient was kept on broad-spectrum antibiotics. He had stated in the past that he thought he might have had an allergy to penicillin, but did not have any reaction to Zosyn throughout his hospital stay. His white blood cell count defervesced and he remained afebrile. Peritoneal fluid cultures eventually grew pansensitive Escherichia coli. By 01/14/2021 the patient was feeling much better. He was passing flatus, tolerating an oral diet, was ambulating independently, etc. Arrangements were made for him to be discharged on Augmentin as an outpatient. I will make arrangements for him to follow-up in my office within a period of approximately 3 to 4 days. In the interim, he was instructed with respect to wound care, activity limitations, diet, etc. Physical Exam Narrative: EXAM NARRATIVE: On the day of discharge the patient was afebrile and vital signs were stable. Bowel sounds were present. All of the incisions looked good. Urinary Catheter Management^: Sharp Latex: Cath Placed During This Visit: yes, but has since been removed by the nurse Reason for Continuing Indwelling Catheter: Decision to DC Catheter Urinary Catheter Date of Insertion: 01/10/21 Urinary Catheter Time of Insertion: 21:22 Date Urinary Catheter Removed: 01/11/21 Time Urinary Catheter Discontinued: 10:00 Discharge Data Data Completed and Pending: Completed Studies During Hospitalization Category Date Time Status CT abdomen pelvis w con* [id number] Stat Cat Scan 01/10/21 17:00 Completed Pathology: Surgic al [PTH] Routine Pth 01/10/21 21:26 Completed Pending at discharge Category Date Time Status Anaerobic Culture Routine Lab 01/10/21 21:00 Results Body Fluid Cultur e & GS Routine Lab 01/10/21 21:00 Results Vitals: Last Vital Signs Temp 99.3 F 01/14/21 04:35 Pulse 71 01/14/21 04:35 Resp 16 01/14/21 04:35 BP 127/71 01/14/21 04:35 Pulse Ox 95 01/14/21 04:35 Discharge Plan Discharge Patient Disposition: Home Condition: Stable Prescriptions: New hydrocodone-acetaminophen 5-325 mg tablet 1 - 2 tab PO Q5H PRN (Reason: pain) Qty: 30 RF: 0 amoxicillin-pot clavulanate [Augmentin] 875-125 mg tablet 1 tab PO BID Qty: 15 RF: 0 Continued Pepcid 20 mg Tablet 20 mg PO TID RF: 0 Discharge Orders: Discharge Order (Routine); Ordered 01/14/21 Ordered By: Umberto Cifuentes Referrals: Umberto Cifuentes MD [Physician] - 4-7 days (Nursing: Please have the patient / family call Dr. Cifuentes's office on Saturday ([phone]) and make an appointment for the patient to be seen the following day (Saturday).) Robert Moncada MD [Primary Care Provider] - Discharge Diet: Advance as tolerated Discharge Activity: Limit activity as instructed Patient Instructions: Opioid Safety Activity Restrictions/Additional Instructions: 1. Discharge to home today. 2. Appointment to see Dr. Cifuentes next week as above. 3. Leave any remaining Steri-Strip(s) on at home, may shower. 4. [place] 5/325 1-2 tablets by mouth every 5 hours as needed for pain. #30, no refills. 5. Augmentin 875/125 1 p.o. twice daily until gone. #15, no refills. No lifting over 20 pounds, no repetitive bending or twisting, no strenuous pushing / pulling or other heavy activity. Ambulate regularly. May go up and down steps if needed. Discharge Attestations Time Spent in Discharge Care*: less than 30 min Quality Metrics Clinical Quality Measures During this hospital stay, did patient experience: None Coding Level of Care Code Acute Chg FW DC note Diagnoses Perforated appendicitis K35.32
[2021-01-14 07:53] VITALS: BP 135/81; PULSE 63; RESP 18; TEMP 37; O2SAT 98
[2021-01-14 09:56] VITALS: BP 135/81; PULSE 63; RESP 18; TEMP 37; O2SAT 98
== END 2021-01-14 09:57 | disposition home or self-care (01) | DRG 339 ==
LOC: ER 17:57 → OPS 20:34 → MEDSURG 22:14
PROVIDERS: Emergency Medicine; Physician Assistant; Admitting Provider Surgery; Emergency Provider Emergency Medicine; PCP General Practice; Visit Provider Surgery
PROC: 0DTJ0ZZ Resection of Appendix, Open Approach (ICD-10-PCS; CPT 44950; principal; 2021-01-10 19:45)
DX: K35.32 Acute appendicitis with perforation, localized peritonitis, and gangrene, without abscess (principal); R18.8 Other ascites; K21.9 Gastro-esophageal reflux disease without esophagitis; F17.210 Nicotine dependence, cigarettes, uncomplicated; K42.9 Umbilical hernia without obstruction or gangrene; K38.1 Appendicular concretions; B96.20 Unspecified Escherichia coli [E. coli] as the cause of diseases classified elsewhere
CPT/HCPCS: 36415; 51702; 74177; 80048; 80053; 81001; 83690; 85025; 85378; 87070; 87075; 87077; 87186; 87205; 88304; 94640; 96365; 96372; 96375; 99285; C9290; J0690; J1100; J1170; J1644; J1885; J1956; J2270; J2405; J2543; J2704; J2710; J3010; J3490; J7030; J7614; Q9967; S0030